=== PATIENT | female | born 1940 | race Two or more races ===

== ENCOUNTER 2022-04-13 23:28 | Inpatient (IN) | payer OTHER ==
[~2022-04-13] VITALS: Ht 162.6 cm; Wt 54.4 kg
[2022-04-13] MEDS ORDERED: ZESTRIL20 MG (23:57)
[2022-04-13] MEDS ORDERED: BENICAR5 MG (23:58)
[2022-04-13] MEDS ORDERED: ARICEPT10 MG (23:58)
[2022-04-14] MEDS ORDERED: ATORVASTATIN CA80 MG PO (10:52)
[2022-04-14] MEDS ORDERED: CHILDREN'S ASPI81 MG PO (10:53)
[2022-04-14] MEDS ORDERED: ARICEPT10 MG PO (14:52)
[2022-04-14] MEDS ORDERED: BENICAR20 MG PO (14:52)
[2022-04-14] MEDS ORDERED: ZESTRIL20 MG PO (14:53)
== END 2022-04-22 21:22 | disposition home or self-care (01) | DRG 379 ==
LOC: ER 23:28 → MEDJ 04-14 14:53 → SEC-K 04-14 14:53 → MEDJ 04-15 03:20
PROVIDERS: ADMIT Internal Medicine; ATTEND Internal Medicine
PROC: BW21YZZ Computerized Tomography (CT Scan) of Abdomen and Pelvis using Other Contrast (ICD-10-PCS; 2022-04-14)
PROC: 30243N1 Transfusion of Nonautologous Red Blood Cells into Central Vein, Percutaneous Approach (ICD-10-PCS; principal; 2022-04-16)
PROC: 02HV33Z Insertion of Infusion Device into Superior Vena Cava, Percutaneous Approach (ICD-10-PCS; 2022-04-16)
PROC: BW28ZZZ Computerized Tomography (CT Scan) of Head (ICD-10-PCS; 2022-04-20)
DX: K62.5 Hemorrhage of anus and rectum (principal); K57.90 Diverticulosis of intestine, part unspecified, without perforation or abscess without bleeding; K80.20 Calculus of gallbladder without cholecystitis without obstruction; D64.9 Anemia, unspecified; I10 Essential (primary) hypertension; M19.90 Unspecified osteoarthritis, unspecified site; F03.90 Unspecified dementia, unspecified severity, without behavioral disturbance, psychotic disturbance, mood disturbance, and anxiety; F41.9 Anxiety disorder, unspecified

== ENCOUNTER 2023-03-21 15:51 | Emergency (ER) | payer OTHER ==
[~2023-03-21] VITALS: Ht 165.1 cm; Wt 61.2 kg
[~2023-03-21 15:51] MED LIST: ARICEPT10 MG; ARICEPT10 MG PO; ATORVASTATIN CA80 MG PO; BENICAR20 MG PO; BENICAR5 MG; CHILDREN'S ASPI81 MG PO; ZESTRIL20 MG; ZESTRIL20 MG PO
[2023-03-21 17:44] LABS: HEMATOCRIT 40.7 % (36.0-45.00); HEMOGLOBIN 13.7 g/dL (12.0-15.00); MEAN CELL VOLUME 92.3 fL (80.00-100.00); MEAN CORPUSCULAR HGB CONC 33.6 g/dl (32.0-36.0); PLATELET COUNT 241 K/uL (150-450); RED BLOOD COUNT 4.41 M/uL (4.00-6.00); RED CELL DISTRIBUTION WIDTH 14.2 % (11.5-14.5)
[2023-03-21 17:54] LABS: URINE APPEARANCE Cloudy; URINE BILIRRUBIN Negative (NEGATIVE); URINE BLOOD Small; URINE COLOR Yellow; URINE GLUCOSE Negative (NEGATIVE); URINE LEUKOCYTE Moderate; URINE NITRATE Negative; URINE PROTEIN 30 (NEGATIVE); URINE UROBILINOGEN 0.2 E.U./dl
[2023-03-21 17:57] LABS: URINE BACTERIA 313.7 uL (0.0-1933); URINE EPITHELIAL CELLS 63.8 uL (0.0-38.8); URINE RBC 16.8 uL (0.0-20.8); URINE WBC 116.8 uL (0.0-23.2)
[2023-03-21 18:29] LABS: INR 0.98; PARTIAL THROMBOPLASTIN TIME 26.2 SECONDS (22.0-34.0); PROTHROMBIN TIME 10.3 SECONDS (9.0-11.5)
[2023-03-21 18:31] LABS: CALCIUM 9.6 mg/dL (8.5-10.1); CREATININE SERUM 2.35 mg/dL (0.55-1.02); GFR 19.85; POTASSIUM 4.04 mEq/L (3.5-5.1)
[2023-03-21 18:46] LABS: URINE CRYSTALS MODERATE /HPF
[2023-03-21] MEDS ORDERED: DUI500 PO (22:11)
[2023-03-21] MEDS ORDERED: METRONIDAZOLE500 MG PO (22:11)
[2023-03-21] MEDS ORDERED: PEPCID AC20 MG PO (22:11)
[2023-03-21] MEDS ORDERED: INTESTINEX680 M1 PO (22:11)
== END 2023-03-21 22:17 | disposition home or self-care (01) ==
LOC: ER 15:51
PROVIDERS: General Practice
DX: N39.0 Urinary tract infection, site not specified (principal); K52.9 Noninfective gastroenteritis and colitis, unspecified; K57.30 Diverticulosis of large intestine without perforation or abscess without bleeding; K80.20 Calculus of gallbladder without cholecystitis without obstruction; I10 Essential (primary) hypertension
CPT/HCPCS: 36415; 74176; 96365; 96366; 99284; J1885; J2405; J3490